=== PATIENT | female | born 1995 | race African-American/Black ===

== ENCOUNTER 2017-02-10 15:52 | Emergency (ER) | payer OTHER ==
[~2017-02-10] VITALS: Ht 154.9 cm; Wt 69.0 kg
[~2017-02-10 15:52] MED LIST: AUGMENTIN250 MG/5 M; CIPRO500 MG PO; CLEOCIN HCL150 MG; FEROSUL325 M1; FLAGYL500 MG; FLEXERIL PO; GENTAMICIN SU3 MG/ML OPHTHALMIC; HYDROCODONE-ACE15 ML; IBUPROFEN 600600 M1; IBUPROFEN 600600 M1 PO; IBUPROFEN100 MG/52; IRON325; NOHOMEMEDICATIONS; NORCO 5-325 TA1 EACH PO; PREDNISONE 20 M20 M1 PO; SENOKOT-S1 TA1; ZANTAC 150MG T150 MG; ZANTAC 15MG/15 MG/ML
[2017-02-10 16:26] VITALS: BP 144/92
== END 2017-02-10 16:22 | disposition home or self-care (01) ==
LOC: ER 15:52
DX: J39.2 Other diseases of pharynx (principal); F10.99 Alcohol use, unspecified with unspecified alcohol-induced disorder

== ENCOUNTER 2017-04-14 18:02 | Emergency (ER) | payer OTHER ==
[~2017-04-14] VITALS: Ht 154.9 cm; Wt 69.4 kg
[2017-04-14 18:56] LABS: URINE BILIRUBIN NEGATIVE (Negative); URINE BLOOD 1+ (Negative); URINE COLOR YELLOW; URINE GLUCOSE-RANDOM* NEGATIVE (Negative); URINE KETONES NEGATIVE (Negative); URINE NITRITE NEGATIVE (Negative); URINE PROTEIN (DIPSTICK) NEGATIVE (Negative); URINE SPECIFIC GRAVITY 1.015 (1.003-1.035)
[2017-04-14 19:00] VITALS: BP 120/87
[2017-04-14 19:03] LABS: BACTERIA 1-9 Few /HPF (None Seen); CASTS None Seen /LPF (None Seen); CRYSTALS None Seen /LPF (None Seen); SQUAMOUS 4-10 Moderate /LPF (0-3); URINE RBC 3-10 Few /HPF (0-2); URINE WBC 0-5 Rare /HPF (0-5)
[2017-04-14] MEDS ORDERED: KEFLEX500 MG PO (19:06)
== END 2017-04-14 19:17 | disposition home or self-care (01) ==
LOC: ER 18:02
PROVIDERS: Nurse Practitioner Family
DX: R30.0 Dysuria (principal); F10.99 Alcohol use, unspecified with unspecified alcohol-induced disorder

== ENCOUNTER 2017-06-15 15:51 | Emergency (ER) | payer OTHER ==
[~2017-06-15] VITALS: Ht 154.9 cm; Wt 67.1 kg
[~2017-06-15 15:51] MED LIST changes: +KEFLEX500 MG PO
[2017-06-15 15:52] VITALS: BP 130/93
[2017-06-15 16:24] LABS: URINE BILIRUBIN 1+ (Negative); URINE BLOOD 3+ (Negative); URINE COLOR YELLOW; URINE GLUCOSE-RANDOM* NEGATIVE (Negative); URINE KETONES NEGATIVE (Negative); URINE LEUKOCYTES-REFLEX NEGATIVE (Negative); URINE PROTEIN (DIPSTICK) NEGATIVE (Negative); URINE SPECIFIC GRAVITY >= 1.030 (1.003-1.035)
[2017-06-15 16:28] LABS: ICTOTEST (BILI CONFIRMATORY) Negative (Negative)
[2017-06-15 16:38] LABS: SQUAMOUS 4-10 Moderate /LPF (0-3); URINE WBC-REFLEX 0-5 Rare /HPF (0-5)
[2017-06-15 16:39] LABS: CASTS None Seen /LPF (None Seen); URINE RBC 3-10 Few /HPF (0-2)
[2017-06-15 16:44] LABS: CRYSTALS None Seen /LPF (None Seen)
[2017-06-16 14:13] LABS: CHLAMYDIA TRACHOMATIS-PCR Negative (Negative); NEISSERIA GONORRHEA-PCR Negative (Negative)
== END 2017-06-15 16:53 | disposition home or self-care (01) ==
LOC: ER 15:51
PROVIDERS: Emergency Medicine
DX: N89.8 Other specified noninflammatory disorders of vagina (principal)

== ENCOUNTER 2017-07-30 10:37 | Emergency (ER) | payer OTHER ==
[~2017-07-30] VITALS: Ht 157.5 cm; Wt 67.1 kg
[2017-07-30 11:31] LABS: URINE BILIRUBIN NEGATIVE (Negative); URINE BLOOD 3+ (Negative); URINE GLUCOSE-RANDOM* NEGATIVE (Negative); URINE KETONES NEGATIVE (Negative); URINE LEUKOCYTES NEGATIVE (Negative); URINE NITRITE NEGATIVE (Negative); URINE PROTEIN (DIPSTICK) NEGATIVE (Negative); URINE UROBILINOGEN 0.2 E.U./dl (0.2-1.0)
[2017-07-30 11:32] LABS: URINE CLARITY SLIGHTLY CLOUDY; URINE COLOR PINK
[2017-07-30 11:38] LABS: BACTERIA 1-9 Few /HPF (None Seen); CASTS None Seen /LPF (None Seen); CRYSTALS None Seen /LPF (None Seen); SQUAMOUS 0-3 Few /LPF (0-3); URINE RBC >20 Many /HPF (0-2); URINE WBC None Seen /HPF (0-5)
== END 2017-07-30 13:16 | disposition home or self-care (01) ==
LOC: ER 10:37
PROVIDERS: Nurse Practitioner
DX: N93.8 Other specified abnormal uterine and vaginal bleeding (principal)

== ENCOUNTER 2017-12-22 17:11 | Emergency (ER) | payer BC ==
[~2017-12-22] VITALS: Ht 154.9 cm; Wt 67.6 kg
[2017-12-22 17:34] VITALS: BP 132/88
== END 2017-12-22 17:48 | disposition home or self-care (01) ==
LOC: ER 17:11
DX: Z32.01 Encounter for pregnancy test, result positive (principal)

== ENCOUNTER 2019-04-10 18:38 | Emergency (ER) | payer OTHER ==
[~2019-04-10] VITALS: Ht 154.9 cm; Wt 73.9 kg
[2019-04-10 18:56] LABS: URINE BILIRUBIN NEGATIVE (Negative); URINE BLOOD NEGATIVE (Negative); URINE CLARITY CLEAR; URINE COLOR YELLOW; URINE GLUCOSE-RANDOM* NEGATIVE (Negative); URINE KETONES NEGATIVE (Negative); URINE LEUKOCYTES-REFLEX NEGATIVE (Negative); URINE NITRITE-REFLEX NEGATIVE (Negative); URINE PROTEIN (DIPSTICK) NEGATIVE (Negative); URINE SPECIFIC GRAVITY 1.015 (1.005-1.035)
[2019-04-10 19:03] LABS: AMP/METHAMP Negative (Negative); BARBITURATES Negative (Negative); BENZODIAZEPINES Negative (Negative); COCAINE Negative (Negative); METHADONE Negative (Negative); OPIATES Negative (Negative); PCP Negative (Negative)
[2019-04-10 19:15] LABS: ABSOLUTE NEUTROPHILS 3.2 thou/uL (1.4-8.2); BASOPHILS 1.1 % (0.0-2.0); EOSINOPHILS 1.1 % (0.0-3.0); HEMATOCRIT 39.4 % (37.0-47.0); LYMPHOCYTES 42.6 % (24.0-44.0); MCHC 33.1 g/dL (28.0-37.0); MCV 90.4 fL (80.0-100.0); MONOCYTES 10.8 % (1.0-8.0); PLATELET COUNT 311 thou/uL (150-400); POLYS 44.4 % (36.0-66.0); RBC 4.35 mil/uL (4.20-5.00); RDW 14.3 % (10.5-14.5); WBC 7.3 thou/uL (4.0-11.0)
[2019-04-10 19:23] LABS: CALCIUM 9.1 mg/dL (8.5-10.1); CREATININE 0.7 mg/dL (0.6-1.0); POTASSIUM 3.8 mmol/L (3.5-5.1)
[2019-04-10 19:27] LABS: TOTAL BILIRUBIN 0.5 mg/dL (<0.1-1.0); TOTAL PROTEIN 7.9 g/dL (6.4-8.2)
[2019-04-10] MEDS ORDERED: IBUPROFEN 600600 M1 PO (19:33)
[2019-04-10 19:51] VITALS: BP 152/98
== END 2019-04-10 19:58 | disposition home or self-care (01) ==
LOC: ER 18:38
PROVIDERS: Emergency Medicine
DX: R10.2 Pelvic and perineal pain (principal); I10 Essential (primary) hypertension

== ENCOUNTER 2020-08-20 11:35 | Emergency (ER) | payer OTHER ==
[~2020-08-20] VITALS: Ht 154.9 cm; Wt 74.8 kg
[2020-08-20] MEDS ORDERED: FLEXERIL PO (13:04)
[2020-08-20 13:46] VITALS: BP 116/73
== END 2020-08-20 13:55 | disposition home or self-care (01) ==
LOC: ER 11:35
DX: M54.2 Cervicalgia (principal); I10 Essential (primary) hypertension; Z79.1 Long term (current) use of non-steroidal anti-inflammatories (NSAID); V49.9XXA Car occupant (driver) (passenger) injured in unspecified traffic accident, initial encounter; Y93.89 Activity, other specified; Y92.89 Other specified places as the place of occurrence of the external cause; Y99.8 Other external cause status

== ENCOUNTER 2021-06-15 09:23 | Emergency (ER) | payer OTHER ==
[~2021-06-15] VITALS: Ht 154.9 cm; Wt 77.1 kg
[2021-06-15] MEDS ORDERED: LISINOPRIL-HCT1 EAC1 PO (09:34)
[2021-06-15 11:00] VITALS: BP 124/84
== END 2021-06-15 11:00 | disposition home or self-care (01) ==
LOC: ER 09:23
PROVIDERS: Emergency Medicine
DX: J02.9 Acute pharyngitis, unspecified (principal); Z20.822 Contact with and (suspected) exposure to COVID-19; I10 Essential (primary) hypertension; Z79.899 Other long term (current) drug therapy